=== PATIENT | female | born 1950 ===

== ENCOUNTER 2017-08-16 16:13 | Outpatient (RCR) | payer MEDICAID ==
[2017-06-05 15:07] VITALS: BMI 19.2
[~2017-08-16 16:13] MED LIST: BACL-1 PO; HYDR-5517 PO; LEVO75TA68 PO; LIDO700A19; LIDO700A19 TP; LIOT5TAB18 PO; ONDA4TAB9 SL; PANT40TA65 PO; PROL120 PO; PROM-110 PO; VER40 PO
[2017-08-17] MEDS ORDERED: IOPAMIDOL 76% 75 ML INFUS BTL 75 ML ONE (09:15)
[2017-08-17] MEDS ORDERED: NS 0.9% 50 ML VIAL 50 ML ONE (09:15)
--- NOTE | 2017-08-17 10:18 | RADIOLOGY IMAGING REPORT ---
[place] [facility] [place] Alyssa [place] : 1950 MR: [id number] V: [id number] EXAM DATE: ORDERING PHYSICIAN: LILIANA BERRY TECHNOLOGIST: Location: [facility] [place] Patient: Alyssa Stewart : 1950 Visit/Account:[id number] Date of Sevice: 08/17/2017 ABDOMEN/PELVIS WITH CONTRAST HISTORY: Abdominal pain. Enteritis. TECHNIQUE: Axial images were obtained through the abdomen and pelvis with intravenous contrast . One of the following dose optimization techniques was utilized in the performance of this exam: automate d exposure control; adjustment of the mA and/or kv according to patient size; or use of iterative rec onstruction technique. Specific details can be referenced in the facility's radiology CT exam operati onal policy. CONTRAST: 75 mL of Isovue-370 COMPARISON: CT abdomen/pelvis 06/02/2017 FINDINGS: Visualized lung bases: Platelike atelectasis. Hepatobiliary: No arterial phase obtained. Prior subcapsular 5 mm enhancing focus at the right lobe the liver is not seen on this single portal venous phase. No biliary ductal dilatation. Spleen: Negative. Adrenals: Stable 1 cm right adrenal nodule, likely an adenoma. Pancreas: Negative. Kidneys/ureters/bladder: Negative. Bowel/peritoneum/mesentery: Prior small bowel dilatation has resolved. Prior small amount of ascite s has resolved. Vessels: Mild arterial calcifications. Retroaortic left renal vein noted. Lymph nodes: Mildly enlarged retroperitoneal lymph nodes measuring up to 1 cm Pelvic genitourinary: Hysterectomy Bones/body wall: Negative. Other findings: None significant IMPRESSION: 1. Prior small bowel dilatation as well as ascites have resolved. 2. Stable 1 cm right adrenal gland nodule, likely an adenoma. 3. Mildly enlarged retroperitoneal lymph nodes measuring up to 1 cm are nonspecific. Report Dictated By: Daniel Zhang MD at 08/17/2017 9:59 AM Report E-Signed By: Daniel Zhang MD at 08/17/2017 10:13 AM WSN:[email or web address]
== END 2017-08-17 18:00 | disposition home or self-care (01) ==
LOC: CT 16:13 → EDSTATUS 08-17 16:12 → CT 08-17 18:00
PROVIDERS: ATTEND Surgery
DX: R10.9 Unspecified abdominal pain (principal); Z87.19 Personal history of other diseases of the digestive system; R59.9 Enlarged lymph nodes, unspecified; E27.9 Disorder of adrenal gland, unspecified
CPT/HCPCS: 36415; 74177; 82565; J7050; Q9967

== ENCOUNTER → 2017-11-12 | Outpatient (CLI) | payer MEDICAID ==
[2017-06-05 15:07] VITALS: BMI 19.2
[~2017-11-12] MED LIST changes: +LEVO50TA86 PO; +RIZA5TAB26 PO; +SUMA100T33 PO
[2017-11-12 16:35] LABS: PLATELET COUNT, AUTOMATED 306 K/uL (150-450)
== END ==
LOC: LAB 15:43
PROVIDERS: ATTEND Internal Medicine
DX: K52.9 Noninfective gastroenteritis and colitis, unspecified (principal); Z90.11 Acquired absence of right breast and nipple; S21.001A Unspecified open wound of right breast, initial encounter; E03.9 Hypothyroidism, unspecified; G43.909 Migraine, unspecified, not intractable, without status migrainosus; I10 Essential (primary) hypertension; M79.7 Fibromyalgia
CPT/HCPCS: 36415; 81001; 82040; 82247; 82310; 82374; 82435; 82565; 82607; 82728; 82746; 82947; 83540; 83550; 84075; 84132; 84155; 84295; 84439; 84443; 84450; 84460; 84481; 84520; 85025

== ENCOUNTER → 2017-11-19 | Outpatient (CLI) | payer MEDICARE, MEDICAID ==
[2017-06-05 15:07] VITALS: BMI 19.2
[~2017-11-19] MED LIST changes: +FERR-53 PO; +GADOBENATE 529MG/1ML 15ML VIAL IVP ONE; +LEVO75TA73 PO; +NS 0.9% 20 ML SDV 40 ML ONE
--- NOTE | 2017-11-19 17:05 | RADIOLOGY IMAGING REPORT ---
FACILITY: [facility] - [place] PATIENT NAME: WILIAN HARDY : [id number] MR: [id number] V: [id number] EXAM DATE: [id number] ORDERING PHYSICIAN: REE OTOOLE TECHNOLOGIST: Maria Esther Arreguin PROCEDURE: BREAST BILATERAL W/O AND/OR WITH CONTRAST COMPARISON: None. INDICATIONS: HX OF RIGHT MASTECTOMY, RECURRENT CA OF RIGHT BREAST FINDINGS: The patient was scheduled for bilateral breast MR for Right chest wall mass and history of bilateral mastectomies. The patient was unable to tolerate laying prone on the breast coil for the examination therefore the examination is being rescheduled following premedication and oxygen administration by the patient's health care provider. This was a nondiagnostic study although there did appear to be multiple Right chest wall masses which should be further evaluated. IMPRESSION: The patient was unable to tolerate laying prone in the breast coil. The examination is to be rescheduled following patient medication and oxygen administration by the patient's healthcare provider. Dictated by: Marianne Arroyo M.D. on 11/19/2017 at 13:26 Transcribed by: MARLON on 11/19/2017 at 15:57 Approved by: Marianne Arroyo M.D. on 11/19/2017 at 17:05 [facility]
== END ==
LOC: MRI 11-14 01:18
PROVIDERS: ATTEND Internal Medicine
DX: Z02.9 Encounter for administrative examinations, unspecified (principal)
CPT/HCPCS: 0159T; A9577; C8908; J7050; 77059

== ENCOUNTER → 2017-12-06 | Outpatient (CLI) | payer MEDICARE, MEDICAID ==
[2017-06-05 15:07] VITALS: BMI 19.2
[~2017-12-06] MED LIST changes: -GADOBENATE 529MG/1ML 15ML VIAL IVP ONE; +IOPAMIDOL 76% 75 ML INFUS BTL 75 ML ONE; -NS 0.9% 20 ML SDV 40 ML ONE; +OXYC20TA99 PO
--- NOTE | 2017-12-06 15:06 | RADIOLOGY IMAGING REPORT ---
[place] [facility] [place] NAME: Alyssa Stewart : 1950 MR: [id number] V: [id number] EXAM DATE: ORDERING PHYSICIAN: REE OTOOLE TECHNOLOGIST: Location: [facility] Patient: Alyssa Stewart : 1950 Visit/Account:[id number] Date of Sevice: 12/06/2017 CHEST/AB/PELV W/WO CONTRAST HISTORY: Recurrent breast cancer right ADDITIONAL HISTORY: None. TECHNIQUE: Pre and post administration of IV contrast axial images acquired through the chest abdome n and pelvis during the portal venous phase. Coronal and sagittal reformatting was also performed. D ose Lowering Technique One of the following dose optimization techniques was utilized in the performance of this exam: Autom ated exposure control; adjustment of the mA and/or kV according to the patient's size; or use of an i terative reconstruction technique. Specific details can be referenced in the facility's radiology C T exam operational policy. CONTRAST: 75 mL Isovue-370 COMPARISON: August 17, 2017 FINDINGS: CHEST: Lungs/Pleura: Small amount linear scarring in the lung bases. Very mild symmetric biapical fibrotic change. There is very subtle nodularity of the pleura in the upper lobes. The appearance is more suggestive of mild scarring as opposed to metastatic nodules Mediastinum/lymph nodes: There are small subcentimeter pretracheal and AP window lymph nodes. There are multiple right hilar lymph nodes. A registered representative lymph node measures 1.4 x 0.9 cm. smaller l eft hilar lymph nodes are present. There are multiple abnormal bilateral axillary lymph nodes, supra clavicular lymph nodes, right internal mammary lymph nodes and multiple irregular partially enhancing nodules in the anterior chest wall. There is a large irregular polylobular partially enhancing mass like area extending outward from the right chest wall measuring approximately 8.1 x 1.8 x 12.5 cm Heart/vessels: Negative. Bones/soft tissues: Please see above discussion concerning chest wall metastases and enlarged lymph nodes S-shaped scoliosis of the thoracolumbar spine ABDOMEN AND PELVIS: Hepatobiliary: Negative. Spleen: Negative. Pancreas: Negative. Adrenals: 1 cm right adrenal nodule remains unchanged left adrenal gland appears unremarkable Kidneys ureters and bladder : Negative. Genitalia: Hysterectomy GI: There is a moderate amount of fecal material seen throughout the colon which can be seen with c onstipation Vessels/spaces/nodes: The previously noted mildly prominent retroperitoneal lymph nodes have increas ed in size and number with the previously noted 1 cm node now measuring 1.3 cm Bones/soft tissues: No aggressive appearing bone lesions. Additional findings: None pertinent. IMPRESSION: There are small subcentimeter pretracheal and AP window lymph nodes Multiple right hilar lymph nodes are present with a registered representative node measuring 1.4 x 0.9 cm. Left hilar lymph nodes appear smaller There are multiple abnormal appearing bilateral axillary and supraclavicular lymph nodes in addition to enlarged right internal mammary lymph node and multiple irregular partially enhancing nodules in t he anterior chest wall consistent with metastatic disease.. 1 cm right adrenal nodule remains stable and is likely an adenoma Previously noted mildly prominent right peroneal lymph nodes have increased in size and number concer amador for malignancy although could be reactive. No aggressive appearing bone lesions are seen Subtle nodularity of the pleura in the upper lobes. The appearance is more suggestive of mild scarri ng as opposed to metastatic nodules Report Dictated By: Marianne Arroyo MD at 12/06/2017 2:38 PM Report E-Signed By: Marianne Arroyo MD at 12/06/2017 3:00 PM WSN:[email or web address]
== END ==
LOC: CT 07:17
PROVIDERS: ATTEND Internal Medicine
DX: C77.3 Secondary and unspecified malignant neoplasm of axilla and upper limb lymph nodes (principal)
CPT/HCPCS: 71270; 72194; 74170; Q9967

== ENCOUNTER → 2018-02-20 | Outpatient (CLI) | payer MEDICARE, MEDICAID ==
[2017-06-05 15:07] VITALS: BMI 19.2
[~2018-02-20] MED LIST changes: +GABA-547 PO; -IOPAMIDOL 76% 75 ML INFUS BTL 75 ML ONE
== END ==
LOC: LAB 14:15
PROVIDERS: ATTEND Surgery
DX: C50.911 Malignant neoplasm of unspecified site of right female breast (principal)
CPT/HCPCS: 88305; 88344

== ENCOUNTER 2018-03-16 11:53 | Emergency (ER) | payer MEDICARE, MEDICAID ==
[2017-06-05 15:07] VITALS: Wt 50.3 kg
--- NOTE | 2018-03-16 13:14 | ER Report ---
History and Physical Time Seen By MD: 13:14 Hx. of Stated Complaint: Sent by [facility] for low H/H. Was supposed to come yesterday HPI/ROS CHIEF COMPLAINT: Anemia HISTORY OF PRESENT ILLNESS: 67-year-old female patient presents to emergency room with complaint of anemia. Patient states states that she had gone to the [facility] for routine labs. She states that she received a call yesterday that her H&H were low and she came in for evaluation. Patient states she was unable to come to the ER last night and so came this morning. Patient states that she is feeling fine although she does feel some more fatigue than she normally does. Patient states she's been dealing with chronic fatigue since she became an adult. She states that she also has fibromyalgia. She states that she has noted more recently that she's gets tired more easily than usual. She denies any nausea, vomiting. She states denies taking any NSAIDs on a normal basis. She states that she's not noticed any black or tarry stools. She does have a history of Crohn's disease. REVIEW OF SYSTEMS: Respiratory: No cough, no dyspnea. Cardiovascular: No chest pain, no palpitations. Gastrointestinal: No vomiting, no abdominal pain. Musculoskeletal: No back pain. Allergies: Coded Allergies: codeine (Verified Allergy, Unknown, 03/16/18) morphine (Verified Allergy, Unknown, 03/16/18) Uncoded Allergies: anesthia (Adverse Reaction, Unknown, Vomiting/ migraine, 11/12/17) Home Meds Active Scripts Hydromorphone Hcl (DILAUDID) 4 Mg Tablet, 1 TAB PO Q6H Y for PAIN, #120 TAB Prov:REE OTOOLE MD 03/11/18 Promethazine Hcl (PROMETHAZINE HCL) 25 Mg Tablet, 1 TAB PO Q6H Y for NAUSEA/ VOMITING, #120 TAB Prov:REE OTOOLE MD 03/11/18 Baclofen (BACLOFEN) 10 Mg Tablet, 10 MG PO TID Y for pain, #60 TAB 2 Refills Prov:REE OTOOLE MD 02/06/18 Sumatriptan Succinate (SUMATRIPTAN SUCCINATE) 100 Mg Tablet, 100 MG PO ONCE Y for MIGRAINE, #9 TAB 2 Refills not to exceed more than 9 tablets / month Prov:REE OTOOLE MD 02/06/18 Lidocaine (Lidocaine) 5 % Adh..patch, 1-3 EACH TP QDAY, #90 PATCH.24H 3 Refills Prov:REE OTOOLE MD 02/06/18 Liothyronine Sodium (CYTOMEL) 5 Mcg Tablet, 1.5 TAB PO DAILY, #135 TAB 0 Refills Prov:REE OTOOLE MD 11/20/17 Propranolol Hcl (INDERAL LA) 120 Mg Capcr, 1 CAP PO QDAY, #90 CAP 0 Refills Prov:REE OTOOLE MD 11/20/17 Levothyroxine Sodium (LEVOTHYROXINE SODIUM) 75 Mcg Tablet, 75 MCG PO QDAY, #90 TAB 1 Refill Prov:REE OTOOLE MD 11/14/17 Past Medical/Surgical History Patient has a past medical history of fibromyalgia, chronic fatigue, migraines, hypertension, Crohn's disease, arthritis, osteoporosis, back pain, anemia, depression, tumor on chest, bilateral breast cancer. Patient has surgical history of hysterectomy. Reviewed Nurses Notes: Yes Hx Smoking: No Smoking Status: Never Smoker Hx Alcohol Use: No (drug interaction) Constitutional Vital Sign - Last 24 Hours 03/16/18 03/16/18 03/16/18 12:23 13:16 17:10 Temp 98.4 98.6 Pulse 65 67 60 Resp 16 18 16 B/P (MAP) 110/68 112/76 (88) Pulse Ox 93 93 97 O2 Delivery Room Air Room Air Room Air Intake and Output 03/16/18 03/16/18 03/17/18 15:00 23:00 07:00 Intake Total 250 ml Balance 250 ml Physical Exam General Appearance: The patient is alert, has no immediate need for airway protection and no current signs of toxicity. Respiratory: Chest is non tender, lungs are clear to auscultation. Cardiac: regular rate and rhythm Gastrointestinal: Abdomen is soft and non tender, no masses, bowel sounds normal. Musculoskeletal: Neck: Neck is supple and non tender. Extremities have full range of motion and are non tender. Skin: No rashes or lesions. DIFFERENTIAL DIAGNOSIS: After history and physical exam differential diagnosis was considered for anemia, exacerbation of chronic fatigue, Crohn's disease, GI bleed. Medical Decision Making Data Points Result Diagram: 03/16/18 1336 03/16/18 1336 Laboratory Hematology Test 03/16/18 13:36 Red Blood Count 3.89 M/uL (4.17-5.56) Mean Corpuscular Volume 63.1 fL (80.0-96.0) Mean Corpuscular Hemoglobin 19.3 pg (26.0-33.0) Mean Corpuscular Hemoglobin Concent 30.6 g/dL (32.0-36.0) Red Cell Distribution Width 18.5 % (11.5-14.5) Mean Platelet Volume 8.1 fL (7.2-11.1) Neutrophils (%) (Auto) 80.1 % (39.4-72.5) Lymphocytes (%) (Auto) 8.0 % (17.6-49.6) Monocytes (%) (Auto) 10.3 % (4.1-12.4) Eosinophils (%) (Auto) 1.1 % (0.4-6.7) Basophils (%) (Auto) 0.5 % (0.3-1.4) Nucleated RBC Relative Count (auto) 0.0 /100WBC Neutrophils # (Auto) 8.6 K/uL (2.0-7.4) Lymphocytes # (Auto) 0.9 K/uL (1.3-3.6) Monocytes # (Auto) 1.1 K/uL (0.3-1.0) Eosinophils # (Auto) 0.1 K/uL (0.0-0.5) Basophils # (Auto) 0.1 K/uL (0.0-0.1) Nucleated RBC Absolute Count (auto) 0.00 K/uL Peripheral Blood Smear Y/N Sodium Level 137 mmol/L (137-145) Potassium Level 4.6 mmol/L (3.5-5.0) Chloride Level 100 mmol/L (98-107) Carbon Dioxide Level 29 mmol/L (22-31) Blood Urea Nitrogen 30 mg/dl (7-18) Creatinine 1.10 mg/dl (0.52-1.04) Glomerular Filtration Rate Calc 49.8 Random Glucose 91 mg/dl (75-110) Calcium Level 8.7 mg/dl (8.4-10.2) Total Bilirubin 0.3 mg/dl (0.2-1.3) Aspartate Amino Transf (AST/SGOT) 31 U/L (0-35) Alanine Aminotransferase (ALT/SGPT) 17 U/L (0-56) Alkaline Phosphatase 89 U/L (0-126) Total Protein 7.5 g/dl (6.3-8.2) Albumin 3.6 g/dl (3.5-5.0) Chemistry Test 03/16/18 13:36 White Blood Count 10.7 k/uL (4.5-11.0) Red Blood Count 3.89 M/uL (4.17-5.56) Hemoglobin 7.5 g/dL (12.0-16.0) Hematocrit 24.5 % (34.0-47.0) Mean Corpuscular Volume 63.1 fL (80.0-96.0) Mean Corpuscular Hemoglobin 19.3 pg (26.0-33.0) Mean Corpuscular Hemoglobin Concent 30.6 g/dL (32.0-36.0) Red Cell Distribution Width 18.5 % (11.5-14.5) Platelet Count 328 K/uL (150-450) Mean Platelet Volume 8.1 fL (7.2-11.1) Neutrophils (%) (Auto) 80.1 % (39.4-72.5) Lymphocytes (%) (Auto) 8.0 % (17.6-49.6) Monocytes (%) (Auto) 10.3 % (4.1-12.4) Eosinophils (%) (Auto) 1.1 % (0.4-6.7) Basophils (%) (Auto) 0.5 % (0.3-1.4) Nucleated RBC Relative Count (auto) 0.0 /100WBC Neutrophils # (Auto) 8.6 K/uL (2.0-7.4) Lymphocytes # (Auto) 0.9 K/uL (1.3-3.6) Monocytes # (Auto) 1.1 K/uL (0.3-1.0) Eosinophils # (Auto) 0.1 K/uL (0.0-0.5) Basophils # (Auto) 0.1 K/uL (0.0-0.1) Nucleated RBC Absolute Count (auto) 0.00 K/uL Peripheral Blood Smear Y/N Glomerular Filtration Rate Calc 49.8 Calcium Level 8.7 mg/dl (8.4-10.2) Total Bilirubin 0.3 mg/dl (0.2-1.3) Aspartate Amino Transf (AST/SGOT) 31 U/L (0-35) Alanine Aminotransferase (ALT/SGPT) 17 U/L (0-56) Alkaline Phosphatase 89 U/L (0-126) Total Protein 7.5 g/dl (6.3-8.2) Albumin 3.6 g/dl (3.5-5.0) ED Course/Re-evaluation ED Course Patient was admitted to an exam room, history of physical were obtained. Differential diagnoses were considered. On examination lungs are clear, heart is regular, abdomen soft nontender. A repeat CBC and CMP were done. Patient did have a hemoglobin which had actually gone down slightly from 7.7-7.5. Patient states that she had been feeling very fatigued recently. We discussed doing a rectal exam to look for GI bleed. Patient refused at that time was. She states she would prefer to go home then to be admitted to the hospital. She states that she has dogs that she needs to care for. A type and screen was done. With her being unable to give us a stool sample we will go ahead and transfuse a unit here in the emergency room. Which she tolerated well. We will go ahead and discharge her home and have her bring back a stool sample tomorrow. I will contact her with the results of the stool. She is to limit her activity by pain. She is to avoid NSAIDs. She is increase her fluid intake. I would like her to follow-up Dr. Echols if she does have a positive occult stool, however she has a negative occult stool no have her follow-up with the cancer center. Patient verbalized understanding and agreement with plan. Decision to Disposition Date: Mar 16, 2018 Decision to Disposition Time: 17:30 Depart Departure Latest Vital Signs Vital Signs Date Time Temp Pulse Resp B/P (MAP) Pulse Ox O2 Delivery O2 Flow Rate FiO2 03/16/18 17:10 98.6 60 16 112/76 (88) 97 Room Air Impression: Primary Impression: Anemia Condition: Improved Disposition: HOME OR SELF-CARE Referrals: REE OTOOLE MD (PCP) Patient Instructions: Anemia (ED) Additional Instructions: Bring back stool sample tomorrow. We will call with the results. Get plenty of rest. At this time I am unsure if this is bleeding from the gastrointestinal tract or not. We should know more with the stool sample. As of this time I would recommend following up with Dr. Echols, but if the stool sample is negative I will have you follow up with the cancer center. Return to the ER if condition worsens. Problem Qualifiers Primary Impression: Anemia Anemia type: other cause Other causes of anemia: other cause, not classified Qualified Codes: D64.89 - Other specified anemias DEIRDRE CUETO Mar 16, 2018 13:14
[2018-03-16] MEDS ORDERED: NS(*) 0.9% 1000 ML BAG 1,000 ML IV ONE (13:21)
[2018-03-16 13:56] LABS: PLATELET COUNT, AUTOMATED 328 K/uL (150-450)
[2018-03-16] MEDS ORDERED: NS(*) 0.9% 500 ML BAG 500 ML IV ONE (14:40)
[2018-03-16] MEDS ORDERED: NS(*) 0.9% 500 ML BAG 500 ML ONE (16:00)
[2018-03-16 17:10] VITALS: BP 112/76
== END 2018-03-16 17:26 | disposition home or self-care (01) ==
LOC: ER 13:16
DX: D64.89 Other specified anemias (principal); M79.7 Fibromyalgia; K50.90 Crohn's disease, unspecified, without complications; I10 Essential (primary) hypertension; M19.90 Unspecified osteoarthritis, unspecified site; M81.0 Age-related osteoporosis without current pathological fracture; Z79.899 Other long term (current) drug therapy
CPT/HCPCS: 85025; 86850; 86900; 86901; 86920; 99283; J7040; P9016; 82040; 82247; 82310; 82374; 82435; 82565; 82947; 84075; 84132; 84155; 84295; 84450; 84460; 84520

== ENCOUNTER → 2018-03-18 | Outpatient (REF) | payer MEDICARE, MEDICAID ==
[2017-06-05 15:07] VITALS: BMI 19.2
== END ==
LOC: ZZSENDIN 16:17
PROVIDERS: ATTEND Nurse Practitioner Family
DX: D64.9 Anemia, unspecified (principal)
CPT/HCPCS: 82274

== ENCOUNTER → 2018-03-21 | Outpatient (CLI) | payer MEDICARE, MEDICAID ==
[2017-06-05 15:07] VITALS: BMI 19.2
[2018-03-21 16:15] LABS: PLATELET COUNT, AUTOMATED 303 K/uL (150-450)
== END ==
LOC: LAB 16:02
PROVIDERS: ATTEND Internal Medicine Hematology
DX: D64.9 Anemia, unspecified (principal)
CPT/HCPCS: 36415; 85025

== ENCOUNTER → 2018-04-02 | Outpatient (CLI) | payer MEDICARE, MEDICAID ==
[2017-06-05 15:07] VITALS: BMI 19.2
[~2018-04-02] MED LIST changes: +GADOBENATE 529MG/1ML 15ML VIAL IVP ONE
--- NOTE | 2018-04-02 12:15 | RADIOLOGY IMAGING REPORT ---
FACILITY: [facility] - [place] PATIENT NAME: Alyssa Stewart : 1950 MR: [id number] V: [id number] EXAM DATE: ORDERING PHYSICIAN: JAMES HUDSON TECHNOLOGIST: Location: [facility] Patient: Alyssa Stewart : 1950 Visit/Account:[id number] Date of Sevice: 04/02/2018 Exam type: ORBITS FOREIGN BODY 1 VIEW History: Pre-MRI screening Comparison: None. Findings: No radiopaque metallic foreign bodies project over the orbits IMPRESSION: 1. No radiopaque metallic foreign bodies project over the orbits Report Dictated By: Marianne Arroyo MD at 04/02/2018 12:10 PM Report E-Signed By: Marianne Arroyo MD at 04/02/2018 12:11 PM WSN:[email or web address]
--- NOTE | 2018-04-02 13:35 | RADIOLOGY IMAGING REPORT ---
FACILITY: [facility] - [place] PATIENT NAME: Alyssa Stewart : 1950 MR: [id number] V: [id number] EXAM DATE: ORDERING PHYSICIAN: JAMES HUDSON TECHNOLOGIST: Location: [facility] - [place] Patient: Alyssa Stewart : 1950 Visit/Account:[id number] Date of Sevice: 04/02/2018 EXAMINATION: MRI Brain without intravenous contrast MRI Brain with intravenous contrast HISTORY: Breast cancer. COMPARISON: PET CT dated 01/05/2014. TECHNIQUE: Multi-planar, multi-sequence brain MRI was performed before and after IV gadolinium. CONTRAST: 11 mL of IV MultiHance FINDINGS: Brain volume: Normal. Sagittal midline structures: Negative. Ventricles: Negative. Acute ischemic changes: None. Hemorrhage: Subcentimeter T2 hypointensity with magnetic susceptibility in the right superior tempor al lobe with no abnormal enhancement or surrounding edema (series 6, images 12 and 13). This is most likely focal calcification, hemosiderin staining from chronic hemorrhage, or cavernous malformation. No evidence of acute intracranial hemorrhage. Masses / edema: None. Enhancement: Negative. Zuleta-white: Negative. White matter: Mild to moderate patchy FLAIR hyperintensity in the frontoparietal white matter. Vessels: Negative. Extra-axial: Negative. Calvarium / scalp: Negative. Skull base: Negative. Visualized sinuses / orbits: Negative. Visualized upper neck: Negative. IMPRESSION: 1. Subcentimeter T2 hypointensity with magnetic susceptibility in the right superior temporal lobe wi th no abnormal enhancement or surrounding edema (series 6, images 12 and 13). This is most likely foc al calcification, hemosiderin staining from chronic hemorrhage, or cavernous malformation. Compariso n with prior brain MRI is recommended if available. Otherwise follow up brain MRI in 1-3 months is re commended to make sure this remains stable and exclude the possibility of a hemorrhagic metastasis in this location. 2. Otherwise no evidence of metastasis. 3. Mild to moderate chronic frontoparietal white matter changes are nonspecific but most likely repre sent chronic microvascular ischemia. Report Dictated By: Akhil Osorio MD at 04/02/2018 1:21 PM Report E-Signed By: Akhil Osorio MD at 04/02/2018 1:32 PM WSN:[email or web address]
== END ==
LOC: MRI 09:31
PROVIDERS: ATTEND Internal Medicine Hematology
DX: R90.82 White matter disease, unspecified (principal)
CPT/HCPCS: 70030; 70553; 93306; A9577

== ENCOUNTER 2018-05-10 02:57 | Day surgery (SDC) | payer MEDICARE, MEDICAID ==
[2017-06-05 15:07] VITALS: Ht 162.6 cm; Wt 48.1 kg
[2018-05-10] VITALS (9 sets, daily range): BP systolic 111–138; BP diastolic 60–80
[~2018-05-10] VITALS: Ht 162.6 cm; Wt 48.1 kg
[~2018-05-10 02:57] MED LIST changes: -GADOBENATE 529MG/1ML 15ML VIAL IVP ONE
[2018-05-10] MEDS ORDERED: MIDAZOLAM 2 MG/2 ML VIAL IVP PRN (06:15)
[2018-05-10] MEDS ORDERED: NORMOSOL R SOLN(*) 1000 ML BAG 1,000 ML IV PRN (06:15)
[2018-05-10] MEDS ORDERED: FAMOTIDINE 20 MG TAB PO ONE (06:15)
[2018-05-10] MEDS ORDERED: ceFAZolin(*) 2GM/D5W 50ML 50 ML IVPB ONE (06:15)
[2018-05-10] MEDS ORDERED: LIDOCAINE/SOD BICARB 8.4% SYR ID ONE (06:15)
[2018-05-10] MEDS ORDERED: HEPARIN SOD LCK FLSH 100 UN/ML ONE (06:48)
[2018-05-10] MEDS ORDERED: ROPIVACAINE 0.5% 20 ML VIAL ONE (06:49)
[2018-05-10] MEDS ORDERED: NS(*) 0.9% 10 ML VIAL 20 ML ONE (06:49)
[2018-05-10] MEDS ORDERED: fentaNYL CITR 100 MCG/2 ML AMP ONE (06:55)
[2018-05-10] MEDS ORDERED: DEXAMETHASONE SOD PHOS 10MG/ML ONE (06:55)
[2018-05-10] MEDS ORDERED: LIDOCAINE MPF 1% 5 ML VIAL ONE (06:55)
[2018-05-10] MEDS ORDERED: ONDANSETRON 4 MG/2 ML VIAL ONE (06:55)
[2018-05-10] MEDS ORDERED: PROPOFOL EMUL(*) 10MG/ML 20 ML 20 ML ONE (06:55)
[2018-05-10] MEDS ORDERED: PROPOFOL EMUL(*) 10MG/ML 20 ML 40 ML ONE (06:56)
--- NOTE | 2018-05-10 08:32 | Short(Outpt) Discharge Summary ---
Discharge Summary Reason for Hosp/Final Diag: (1) Recurrent cancer of right breast Status: Chronic Hospital Course & Plan: Left IJ Power Port placement completed without prob lems. Departure Discharge to: Home, Self Care Discharge Instructions Home Meds Active Scripts Hydromorphone Hcl (DILAUDID) 4 Mg Tablet, 1 TAB PO Q6H PRN for PAIN, #120 TAB Prov:REE OTOOLE MD 04/10/18 Promethazine Hcl (PROMETHAZINE HCL) 25 Mg Tablet, 1 TAB PO Q6H PRN for NAUSEA/VO MITING, #120 TAB 4 Refills Prov:REE OTOOLE MD 04/10/18 Baclofen (BACLOFEN) 10 Mg Tablet, 10 MG PO TID PRN for pain, #60 TAB 2 Refills Prov:REE OTOOLE MD 02/06/18 Sumatriptan Succinate (SUMATRIPTAN SUCCINATE) 100 Mg Tablet, 100 MG PO ONCE PRN for MIGRAINE, #9 TAB 2 Refills not to exceed more than 9 tablets / month Prov:REE OTOOLE MD 02/06/18 Lidocaine (Lidocaine) 5 % Adh..patch, 1-3 EACH TP QDAY, #90 PATCH.24H 3 Refills Prov:REE OTOOLE MD 02/06/18 Liothyronine Sodium (CYTOMEL) 5 Mcg Tablet, 1.5 TAB PO DAILY, #135 TAB 0 Refills Prov:REE OTOOLE MD 11/20/17 Propranolol Hcl (INDERAL LA) 120 Mg Capcr, 1 CAP PO QDAY, #90 CAP 0 Refills Prov:REE OTOOLE MD 11/20/17 Levothyroxine Sodium (LEVOTHYROXINE SODIUM) 75 Mcg Tablet, 75 MCG PO QDAY, #90 TAB 1 Refill Prov:REE OTOOLE MD 11/14/17 Reported Medications Ferrous Sulfate (FERROUS SULFATE) 325 Mg Tablet, 325 MG PO TID with meals 04/26/18 Diet: Regular Activity: As Tolerated Special Instructions: You may continue to change the dressings on your breast cancer wounds daily and as needed but, if possible, try to leave the dressings over the port incisions on your chest and neck in place until 05/12/18. You may remove the dressings on 05/12/18, then you can shower. After showering, leave the incisions open to air but leave the steristrips in place until they fall off on their own. Do not immerse the incisions for 2 weeks. LILIANA BERRY MD May 10, 2018 08:31
--- NOTE | 2018-05-10 08:38 | Post Operative Progress Note ---
Post Operative Progress Note Date: May 10, 2018 Time: 08:32 Surgeon: Onesimo Dictation number: [id number] Anesthesia: LMA by Dr. Bahena Pre-Op Diagnosis: Recurrent advanced breast cancer Post-Op Diagnosis: SHELDON Findings: None Procedure(s): Left IJ Power Port placement Specimen Removed:(May be N/A): None Complications: None Fluids: See anesthesia record Estimated Blood Loss: Minimal Date OP Note Dictated: May 10, 2018 Time OP Note Dictated: 08:33 LILIANA BERRY MD May 10, 2018 08:38
--- NOTE | 2018-05-10 08:49 | RADIOLOGY IMAGING REPORT ---
[facility]AC[facility] PATIENT NAME: Alyssa Stewart : 1950 MR: [id number] V: [id number] EXAM DATE: ORDERING PHYSICIAN: LILIANA BERRY TECHNOLOGIST: Location: [facility] Patient: Alyssa Stewart : 1950 Visit/Account:[id number] Date of Sevice: 05/10/2018 CHEST SINGLE AP Indication: Para port placement.. Comparison: June 02, 2017. Findings: Interval placement of a left chest wall port catheter with tip projecting over the distal SVC. Heart size within normal limits. Questionable consolidation within the left lung base, likely representing atelectasis. There is bron chovascular prominence with fullness of the bilateral hilar regions, favored vascular in etiology. No pneumothorax or pleural effusion. IMPRESSION: 1. No acute cardiopulmonary process. 2. Left chest wall port catheter with tip projecting over the distal SVC. No visualized complicatio n. 3. Bronchovascular prominence without gualberto pulmonary edema. 4. Questionable consolidation within the left lung base, likely representing atelectasis. Report Dictated By: Renzo Rolon MD at 05/10/2018 8:43 AM Report E-Signed By: Renzo Rolon MD at 05/10/2018 8:46 AM WSN:[email or web address]
--- NOTE | 2018-05-10 11:34 | RADIOLOGY IMAGING REPORT ---
FACILITY: [facility] - [place] PATIENT NAME: Alyssa Stewart : 1950 MR: [id number] V: [id number] EXAM DATE: ORDERING PHYSICIAN: LILIANA BERRY TECHNOLOGIST: Location: [facility] [place] Patient: Alyssa Stewart : 1950 Visit/Account:[id number] Date of Sevice: 05/10/2018 Exam type: C-ARM FLUORO PORT/CATH History: PORT PLACEMENT Comparison: None. Fluoroscopy Time: 23 seconds Findings: 2 intraoperative images are available. 2 spot films demonstrating placement of a left chest wall port catheter with tip projecting over the distal SVC. IMPRESSION: 1. Fluoroscopic guidance provided for port placement. Report Dictated By: Renzo Rolon MD at 05/10/2018 11:17 AM Report E-Signed By: Renzo Rolon MD at 05/10/2018 11:29 AM WSN:[id number]
--- NOTE | 2018-05-10 12:16 | OPERATIVE REPORT 1 ---
EVENT DATE: May 10, 2018 SURGEON: Raghu Echols MD ANESTHESIOLOGIST: Arsh Bahena MD ANESTHESIA: LMA PREOPERATIVE DIAGNOSIS Recurrent advanced breast cancer. POSTOPERATIVE DIAGNOSIS Recurrent advanced breast cancer. PROCEDURE PERFORMED Left IJA PowerPort placement. COMPLICATIONS None. CONDITION Stable. ESTIMATED BLOOD LOSS Minimal. INDICATIONS This is a 67-year-old female who was treated several years ago for a right breast cancer with a mastectomy but then had a recurrence in the same side. She has other chronic comorbidities including fibromyalgia, chronic fatigue, and elected apparently not to proceed with chemotherapy or any treatment and the mass has progressively gotten bigger and now is a fungating mass in her right breast. After several discussions and ultimately referral to the oncologist, she has decided to proceed with a palliative chemotherapy and they have requested a PowerPort to be placed to facilitate this. DESCRIPTION OF PROCEDURE The patient was brought to the operating room and placed supine on the operating table. LMA anesthesia was administered and all of her dressings were taken down and I placed 1010 drapes over the large, fungating mass on her right chest and there was a smaller fungating mass on her left inferior chest and these were covered with 1010 drapes to be prepped out of the field. Her left chest, shoulder and neck were prepped and draped in sterile fashion and timeout was completed. I then had her in Trendelenburg and used the ultrasound to identify the left internal jugular vein and then used the access needle and was able to access the vein in one attempt. I then threaded the wire through the needle and removed the needle and then used the C-arm fluoroscope to insure the wire was positioned in the superior vena cava. After I confirmed this, then I anesthetized the skin in the left neck and in the left infraclavicular skin and then I made a stab incision in the neck with an 11 blade right where the wire entered the neck and then made a transverse incision with a 15 blade in the left infraclavicular skin. I then dissected to the dermis at this location and then created a subcutaneous pocket just over the muscle fascia in this very thin patient. I made sure this was hemostatic and then I used the tunneler and dragged the catheter from the pocket up to the stab incision in the neck. Then with the patient in Trendelenburg threaded a dilator and sheath over the wire and removed the dilator and wire and threaded the catheter through the sheath and removed the sheath. I then used the fluoroscope to position the tip of the catheter in the superior vena cava just above the right atrium and then cut the catheter length and placed it on the port, locked it in placed with a locking collar. I then sutured the port to the underlying muscle fascia with 2-0 Nylon at the corners. I then aspirated blood through the catheter and port and then flushed it with 8 mL of normal saline and then flushed it with 5 mL of 100 units/mL Heparinated saline. It aspirated and flushed without any problems. I then took more C-arm images and confirmed it was in good position and it was. There were no kinks or twists and the tip was in the superior vena cava just above the right atrium. I then closed the skin at the pocket site with interrupted 3-0 Vicryl deep dermal sutures and the 4-0 Monocryl running subcuticular sutures and then I placed a single 3-0 Chronic suture in the stab incision in the neck. Her skin was cleaned and dried, and Steri-Strips were applied over the incisions followed by sterile surgical dressings. The patient was awakened and LMA removed. She was transferred to the recovery room in stable condition having tolerated the procedure without any apparently problems. BESSIE
[2018-05-15] MEDS ORDERED: HYDR-5517 PO (11:36)
== END 2018-05-10 09:30 | disposition home or self-care (01) ==
LOC: OR 02:57
PROVIDERS: ATTEND Surgery
DX: C50.911 Malignant neoplasm of unspecified site of right female breast (principal)
CPT/HCPCS: 36561; 71045; 77001; A9270; C1788; J1100; J2001; J2250; J2405; J2704; J2795; J3010; J0690

== ENCOUNTER → 2018-05-15 | Outpatient (CLI) | payer MEDICARE, MEDICAID ==
[2017-06-05 15:07] VITALS: BMI 19.2
[2018-05-15 12:19] LABS: PLATELET COUNT, AUTOMATED 289 K/uL (150-450)
== END ==
LOC: LAB 11:42
PROVIDERS: ATTEND Internal Medicine
DX: D64.9 Anemia, unspecified (principal); C50.911 Malignant neoplasm of unspecified site of right female breast
CPT/HCPCS: 36415; 82040; 82247; 82310; 82374; 82435; 82565; 82607; 82728; 82746; 82947; 83540; 83550; 84075; 84132; 84155; 84238; 84295; 84450; 84460; 84520; 85025

== ENCOUNTER 2018-05-27 09:00 | Outpatient (RCR) | payer MEDICARE, MEDICAID ==
[2017-06-05 15:07] VITALS: Ht 159 cm; Wt 49.9 kg
[2018-02-28 14:42] VITALS: BP 105/57
--- NOTE | 2018-02-28 18:00 | ONCOLOGY CONSULTATION ---
EVENT DATE: February 28, 2018 REFERRING PHYSICIAN SANCHO Klein REASON FOR CONSULTATION Evaluation and management of recurrent right breast cancer. ONCOLOGY HISTORY Patient is a 67-year-old female who was discharged with right breast cancer ER/ MO negative, HER2/harris positive approximately seven years ago. She completed a right mastectomy in 2010 and the patient chose at that time not to proceed with chemotherapy. She is currently experiencing recurrent disease with reported fungating mass on the right breast that is now on the left breast as well. She was admitted recently and treated by Dr. Echols for small bowel obstruction. She had a CT chest, abdomen and pelvis done on December 06, 2017 which showed multiple abnormal bilateral axillary and supraclavicular lymph nodes and enlarged right internal mammary lymph node, and multiple irregularly partially enhancing nodules in the anterior chest wall consistent with her metastatic disease. On February 21, 2018 patient had a fracture of the fungating mass of the right breast area which came back positive for poorly differentiated carcinoma, microsatellite instability high negative. The pathological markers for breast cancer with ER/MO and HER2/harris are still pending. PAST MEDICAL HISTORY 1. Right breast cancer diagnosed initially in 2010 with recurrence in May 2017. 2. Severe fibromyalgia. 3. Chronic migraines. 4. Hypertension. 5. Hypothyroidism. PAST SURGICAL HISTORY 1. Total vaginal hysterectomy. 2. Right breast mastectomy in 2010. 3. Bilateral tubal ligation. FAMILY HISTORY Maternal grandmother had some sort of cancer. Mother had some sort of blood cancer and father had prostate cancer. SOCIAL HISTORY Patient is seen alone. She does not have children. She does not answer most of the social history questions. MEDICATIONS 1. Baclofen 10 mg three times daily as needed. 2. Sumatriptan succinate 100 mg once as needed for migraine. 3. Lidocaine 5% adhesive patch 1-3 topically daily. 4. Dilaudid 4 mg one tablet every six hours as needed for pain. 5. Cytomel 5 mcg one and a half tablets daily. 6. Propanolol 120 mg daily. 7. Levothyroxine 75 mcg daily. 8. Promethazine 25 mg every six hours p.r.n. for nausea and vomiting. ALLERGIES 1. CODEINE. 2. MORPHINE. 3. MULTIPLE CHEMICAL SENSITIVITIES. REVIEW OF SYSTEMS CONSTITUTIONAL: No appetite or weight change. No fever, chills or sweating. No recent infection. HEENT: Ears: No tinnitus or hearing problem. Nose: No nasal discharge or epistaxis. Throat: No sore throat or mouth ulcers. Eyes: No diplopia or visual changes. RESPIRATORY: No shortness of breath. No cough, expectoration or hemoptysis. CARDIOVASCULAR: No chest pain, orthopnea, or paroxysmal nocturnal dyspnea (PND) . No edema. No palpitations. GASTROINTESTINAL: The patient has nausea. No vomiting. No diarrhea or constipation. No change in bowel movements. No heartburn or swallowing difficulties. No abdominal pain. No jaundice. No hematemesis, melena or rectal bleeding. GENITOURINARY: No hematuria or dysuria. MUSCULOSKELETAL: She has piin all over from her fibromyalgia. NEUROLOGICAL: No tingling or numbness in the hands or feet. She ahs migraine headaches frequently. No convulsions. HEMATOLOGIC/LYMPHATIC: No bleeding or easy bruising. She is weak, tired and fatigued. No enlarged lymph nodes. SKIN: No skin rash or lumps. PSYCHIATRIC: No anxiety or depression. PHYSICAL EXAMINATION GENERAL: Looks stable. Well-developed, well-nourished, and in no acute distress. VITAL SIGNS: Blood pressure 105/57, pulse 68 per minute, respirations 16 per minute, temperature 98.8, pulse ox 93% on room air. HEENT: Head: Atraumatic. No sinus tenderness to palpation. Eyes: No icterus or conjunctivitis. Mouth and Throat: No oral thrush or mucositis. NECK: Supple. No cervical or supraclavicular lymphadenopathy. LUNGS: Clear to auscultation and percussion bilaterally. HEART: Regular rate and rhythm. No gallops, murmurs, clicks or rubs. The right chest wall was actually dressed with gauze and taped to the chest wall over the fungating mass. ABDOMEN: Soft and lax. No tenderness. No hepatosplenomegaly. No masses. EXTREMITIES: No cyanosis, clubbing or edema. LYMPHATICS: No peripheral lymphadenopathy. NEUROLOGICAL: Conscious, alert and oriented times three. No focal motor or sensory deficits. PSYCHIATRIC: Mood and affect appear normal. SKIN: No skin rash, bruise or purpuric eruption. ASSESSMENT 1. Recurrent right breast cancer with chest wall recurrence with fungating mass extending to the left breast. Patient had biopsy of the fungating mass on February 21, 2018, which came back positive for poorly differentiated carcinoma microsatellite instability high negative. She had CT chest, abdomen and pelvis on December 06, 2017 which showed multiple lymph nodes, bilateral axillary, supraclavicular lymph nodes, right internal mammary, but of all the lymph nodes actually the largest was 1.4 cm. She was initially diagnosed with right breast cancer and she had right mastectomy in 2010. Her tumor was ER/MO negative, HER2 /harris positive, and the patient declined treatment at that time. I am planning to get staging workup, given that her CAT scan in November showed multiple lymph nodes suggestive of recurrent metastatic disease. I am planning to get a PET CT scan and MRI of the brain. I am planning also to check her CBC, chem panel , CA 27-29 and CA 15-3. I will see the patient after that and after we get the pathological markers from her recent biopsy in January 2018 to decide about further plan. The patient expressed her wishes today not to have any chemistry in her treatment. It depends on the stage and the pathological markers. If she is HER2/harris positive then treatment with Herceptin and PERJETA will be the plan of management. And if the ER/MO is positive then we will consider also adding hormonal therapy with Femara. If patient has stage IV then I prefer to start with Taxotere beside Herceptin and PERJETA, and once we get the response we can maintain with Herceptin and PERJETA alone. I explained all these issues to the patient today and she would like to talk to [place] Mathis prior to making her decision about further management. I will see her in a week with the results of the above tests to set the plan of her treatment. If the patient will get a good response locally she may consider surgical treatment after that and radiation therapy. PLAN 1. PET CT scan. 2. MRI of the brain. 3. CBC, chem panel. 4. CA 27-29 and CA 15-3. 5. Await the results of the pathological markers from her biopsy done January. 6. Patient to return in one week for further evaluation and management. 7. Patient is to contact us for any new concerns or complaints. ANNIED
[2018-03-15 12:15] LABS: PLATELET COUNT, AUTOMATED 328 K/uL (150-450)
[2018-04-26 08:33] VITALS: BP 140/55
--- NOTE | 2018-04-26 21:17 | ONCOLOGY FOLLOW UP NOTE ---
EVENT DATE: April 26, 2018 DIAGNOSIS Recurrent right breast cancer with chest wall recurrence, lymph node metastasis, and lung nodules. CHIEF COMPLAINT Patient is here today for followup of her recurrent right breast cancer. ONCOLOGY HISTORY Patient is a 67-year-old female who was discharged with right breast cancer, ER/RI negative, HER2/harris positive approximately seven years ago. She completed a right mastectomy in 2010, and the patient chose at that time not to proceed with chemotherapy. She is currently experiencing recurrent disease with reported fungating mass on the right breast that is now on the left breast as well. She was admitted recently and treated by Dr. Echols for small-bowel obstruction. She had a CT chest, abdomen, and pelvis done on December 06, 2017, which showed multiple abnormal bilateral axillary and supraclavicular lymph nodes, enlarged right internal mammary lymph node, and multiple irregular, partially enhancing nodules in the anterior chest wall consistent with her metastatic disease. On February 21, 2018, patient had a fracture of the fungating mass of the right breast area which came back positive for poorly differentiated carcinoma, microsatellite instability high negative. The pathological markers for breast cancer showed negative ER/RI and positive HER2/harris by FISH (2+ by immunohistochemistry), and Ki-67 was 43.8%. MRI brain done on the March showed right superior temporal lobe hypointensity with no surrounding edema or abnormal enhancement which could be due to chronic hemorrhage, and the patient had a history of severe trauma to the head before. PET/CT scan done on the March showed previous right mastectomy with dominant fungating right chest wall mass concerning for recurrent chest wall tumor. There are numerous additional hypermetabolic nodules in the right chest wall and in the left breast concerning for hypermetabolic metastatic disease. There is extensive hypermetabolic adenopathy in the lower neck, mediastinum, lima, axillae, and throughout the abdomen and the pelvis which could represent hypermetabolic metastatic disease. Echocardiogram showed normal left ventricular ejection fraction at 67.6%. CA27.29 and CA15-3 were normal. Patient will start treatment with Herceptin, Perjeta, and Taxotere in April 2018. HISTORY OF PRESENT ILLNESS Patient is here today for followup of her recurrent metastatic right breast cancer. She is complaining of generalized joint pain all over from her fibromyalgia. She is weak, tired, and fatigued lately. PAST MEDICAL HISTORY 1. Right breast cancer, diagnosed initially in 2010 with recurrence in May 2017. 2. Severe fibromyalgia. 3. Chronic migraines. 4. Hypertension. 5. Hypothyroidism. PAST SURGICAL HISTORY 1. Total vaginal hysterectomy. 2. Right breast mastectomy in 2010. 3. Bilateral tubal ligation. FAMILY HISTORY Maternal grandmother had some sort of cancer, mother had some sort of blood cancer, and father had prostate cancer. SOCIAL HISTORY Patient is seen alone. She does not have children. She does not answer most of the social history questions. MEDICATIONS 1. Baclofen 10 mg three times daily as needed. 2. Sumatriptan succinate 100 mg once as needed for migraine. 3. Lidocaine 5% adhesive patch one to three topically daily. 4. Dilaudid 4 mg one tablet every six hours as needed for pain. 5. Cytomel 5 mcg one and a half tablets daily. 6. Propranolol 120 mg daily. 7. Levothyroxine 75 mcg daily. 8. Promethazine 25 mg every six hours p.r.n. for nausea and vomiting. ALLERGIES 1. CODEINE. 2. MORPHINE. 3. MULTIPLE CHEMICAL SENSITIVITIES. REVIEW OF SYSTEMS CONSTITUTIONAL: No appetite or weight change. No fever, chills, or sweating. No recent infection. HEENT: Ears: No tinnitus or hearing problem. Nose: No nasal discharge or epistaxis. Throat: No sore throat or mouth ulcers. Eyes: No diplopia or visual changes. RESPIRATORY: No shortness of breath. No cough, expectoration, or hemoptysis. CARDIOVASCULAR: No chest pain, orthopnea, or paroxysmal nocturnal dyspnea (PND). No edema. No palpitations. GASTROINTESTINAL: The patient has nausea. No vomiting. No diarrhea or constipation. No change in bowel movements. No heartburn or swallowing difficulties. No abdominal pain. No jaundice. No hematemesis, melena, or rectal bleeding. GENITOURINARY: No hematuria or dysuria. MUSCULOSKELETAL: She has generalized joint pains all over from fibromyalgia. NEUROLOGICAL: No tingling or numbness in the hands or feet. She has migraine headaches frequently. No convulsions. HEMATOLOGIC/LYMPHATIC: No bleeding or easy bruising. She is weak, tired, and fatigued. No enlarged lymph nodes. SKIN: No skin rash or lumps. PSYCHIATRIC: No anxiety or depression. PHYSICAL EXAMINATION GENERAL: Looks stable. Well developed, well nourished, and in no acute distress. VITAL SIGNS: Blood pressure 140/55, pulse 66 per minute, respirations 16 per minute, temperature 98.4, pulse ox 92% on room air. HEENT: Head: Atraumatic. No sinus tenderness to palpation. Eyes: No icterus or conjunctivitis. Mouth and Throat: No oral thrush or mucositis. NECK: Supple. No cervical or supraclavicular lymphadenopathy. LUNGS: Clear to auscultation and percussion bilaterally. HEART: Regular rate and rhythm. No gallops, murmurs, clicks, or rubs. CHEST: The right chest wall was actually dressed with gauze and taped to the chest wall over the fungating mass. ABDOMEN: Soft and lax. No tenderness. No hepatosplenomegaly. No masses. EXTREMITIES: No cyanosis, clubbing, or edema. LYMPHATICS: No peripheral lymphadenopathy. NEUROLOGICAL: Conscious, alert, and oriented times three. No focal motor or sensory deficits. PSYCHIATRIC: Mood and affect appear normal. SKIN: No skin rash, bruise, or purpuric eruption. DIAGNOSTIC DATA CBC showed white count 7.5, hemoglobin 7.7, hematocrit 25.5, platelets 328,000. Chem panel normal except sodium 136, BUN 23. CA27.29 normal at 18. CA15-3 is normal at 19. Serum iron 32, TIBC 383, iron saturation 8.4%, and ferritin 9. MRI brain on the March showed right superior temporal lobe hypodensity with no surrounding edema or abnormal enhancement which could be due to chronic hemorrhage, and the patient had severe head injury in the past. PET/CT scan on the March showed the previous right mastectomy with dominant fungating right chest wall mass and the numerous hypermetabolic nodules in the right chest wall and in the left breast. There was also hypermetabolic adenopathy in the lower neck, mediastinum, lima, axillae, and throughout the abdomen and pelvis. Echocardiogram done on the March showed normal left ventricular ejection fraction at 67.6%. ASSESSMENT 1. Recurrent right breast cancer with chest wall recurrence with fungating mass extending to the left breast. Biopsy of the fungating mass February 21, 2018, came back positive for poorly differentiated carcinoma, microsatellite instability high negative, ER/RI negative, HER2/harris 2+ by immunohistochemistry, but positive by FISH, and the Ki-67 was 43.8%. CT abdomen, chest, and pelvis done December 06, 2017, showed multiple lymph nodes bilateral axillae, supraclavicular lymph nodes, right internal mammary, but of all the lymph nodes actually. The largest was about 1.4 cm. Patient was initially diagnosed with right breast cancer, and she had right mastectomy in 2010. Her tumor was ER/RI negative, HER2/harris positive, and the patient declined treatment at that time. PET/CT scan on the March showed right mastectomy with dominant fungating right chest wall mass and additional hypermetabolic nodules in the right chest wall and in the left breast concerning for hypermetabolic metastatic disease. There was also hypermetabolic extensive adenopathy in the lower neck, mediastinum, lima, axillae, and throughout the abdomen and pelvis. Her MRI of the brain done on the March showed right superior temporal lobe hypointensity with no surrounding edema or abnormal enhancement which could be due to chronic hemorrhage, and the patient had head trauma in the past. Left ventricular ejection fraction by two-dimensional echocardiogram done on the March showed normal left ventricular ejection fraction at 67.6%. Her tumor markers CA27.29 and CA15-3 were normal. I am planning to treat her with combination of Taxotere, Herceptin, and Perjeta to get the maximal response. Then, we are going to maintain her on Herceptin and Perjeta after that. The patient is agreeable with the plan of management. I spent a long time with the patient explaining the plan of management and side effects expected from her treatment, and she is willing to start her treatment next week, so the patient will start Herceptin, Perjeta, and Taxotere in April 2018. I will see her in three weeks after starting chemotherapy with CBC, chemistry panel, and I will check her CBC, chemistry panel every week. If the patient develops neutropenia, I will add Neulasta to her treatment. 2. Iron deficiency anemia, most probably due to oozing blood from her fungating mass in the right chest wall. Her serum ferritin was 9, iron saturation 8.4%, TIBC 383, and serum iron 32. I am planning to put her on ferrous sulfate 325 mg three times daily, and we will monitor her blood count in two months with iron studies. PLAN 1. Taxotere, Herceptin, Perjeta cycle #1. 2. Ferrous sulfate 325 mg orally three times daily with meals. 3. CBC, chem panel to be checked weekly. 4. Patient to return in three weeks after starting chemotherapy with CBC, chem panel. 5. Consider Neulasta if the patient develops neutropenia with her chemotherapy. 6. Patient to contact us for any new concern or complaints. 7. Refill her pain medications with Dilaudid and promethazine. MTDD
[~2018-05-27] VITALS: Ht 159 cm; Wt 49.9 kg
[~2018-05-27 09:00] MED LIST changes: +ALTEPLASE RECOMB 2 MG VIAL IVP PRN; +DEXTROSE 5%(*) 100 ML BAG 100 ML IVPB PRN; +HEPARIN FLSH (PORT) 500 UN/5ML IVP PRN; +LIDOCAINE/SOD BICARB 8.4% SYR ID PRN; +NS(*) 0.9% 100 ML BAG 100 ML IVPB PRN; +NS(*) 0.9% 500 ML BAG 500 ML IV PRN; +WATER FOR INJ,STERILE 20 ML IVP PRN
[2018-05-27 09:44] VITALS: BP 96/51
[2018-05-27] MEDS ORDERED: FERRIC CARBOXY 750 MG SDV 750 MG in NS(*) 0.9% 250 ML BAG 250 ML IVP ONE (10:20)
[2018-05-28] MEDS ORDERED: HYDR-5517 PO (15:12)
== END 2018-05-28 ==
LOC: ONC 09:00
PROVIDERS: ATTEND Internal Medicine Hematology
DX: C50.911 Malignant neoplasm of unspecified site of right female breast (principal); C77.8 Secondary and unspecified malignant neoplasm of lymph nodes of multiple regions; R59.1 Generalized enlarged lymph nodes; Z17.1 Estrogen receptor negative status [ER-]; E03.9 Hypothyroidism, unspecified; M79.7 Fibromyalgia; I10 Essential (primary) hypertension; G43.919 Migraine, unspecified, intractable, without status migrainosus; Z90.710 Acquired absence of both cervix and uterus; R91.8 Other nonspecific abnormal finding of lung field
CPT/HCPCS: 85025; 86300; 96365; G0463; J1439; J1642; J7050; 82040; 82247; 82310; 82374; 82435; 82565; 82947; 84075; 84132; 84155; 84295; 84450; 84460; 84520; 99203; 99212

== ENCOUNTER 2018-06-04 09:00 | Outpatient (RCR) | payer MEDICARE, MEDICAID ==
[2017-06-05 15:07] VITALS: BMI 19.2
[~2018-06-04 09:00] MED LIST changes: -ALTEPLASE RECOMB 2 MG VIAL IVP PRN; -DEXTROSE 5%(*) 100 ML BAG 100 ML IVPB PRN; -HEPARIN FLSH (PORT) 500 UN/5ML IVP PRN; -LIDOCAINE/SOD BICARB 8.4% SYR ID PRN; -NS(*) 0.9% 100 ML BAG 100 ML IVPB PRN; -NS(*) 0.9% 500 ML BAG 500 ML IV PRN; -WATER FOR INJ,STERILE 20 ML IVP PRN
[2018-06-04] MEDS ORDERED: LIDOCAINE/SOD BICARB 8.4% SYR ID PRN (09:10)
[2018-06-04] MEDS ORDERED: WATER FOR INJ,STERILE 20 ML IVP PRN (09:10)
[2018-06-04] MEDS ORDERED: DEXTROSE 5%(*) 100 ML BAG 100 ML IVPB PRN (09:10)
[2018-06-04] MEDS ORDERED: NS(*) 0.9% 100 ML BAG 100 ML IVPB PRN (09:10)
[2018-06-04] MEDS ORDERED: HEPARIN FLSH (PORT) 500 UN/5ML IVP PRN (09:10)
[2018-06-04] MEDS ORDERED: NS(*) 0.9% 500 ML BAG 500 ML IV PRN (09:10)
[2018-06-04] MEDS ORDERED: ALTEPLASE RECOMB 2 MG VIAL IVP PRN (09:10)
[2018-06-04 09:31] VITALS: BP 132/78
[2018-06-04] MEDS ORDERED: FERRIC CARBOXY 750 MG SDV 750 MG in NS(*) 0.9% 250 ML BAG 250 ML IVP ONE (09:45)
[2018-06-04 11:01] VITALS: BP 125/82
[2018-06-14] MEDS ORDERED: HYDR-5517 PO (11:42)
== END 2018-08-28 08:33 | disposition home or self-care (01) ==
LOC: SPU 09:00
PROVIDERS: ATTEND Internal Medicine Hematology
DX: C50.911 Malignant neoplasm of unspecified site of right female breast (principal)
CPT/HCPCS: 96374; J1642; J2997; J7050

== ENCOUNTER 2018-12-19 03:46 | Inpatient (IN) | payer MEDICARE, MEDICAID ==
[2017-06-05 15:07] VITALS: Wt 48.1 kg
--- NOTE | 2018-12-19 03:36 | ER Report ---
History and Physical Time Seen By MD: 03:36 (DERIK FROST DO) HPI/ROS CHIEF COMPLAINT: Shortness of breath HISTORY OF PRESENT ILLNESS: 68-year-old female with a history of recurrent metastatic breast cancer normally on O2 by 2 L by nasal cannula. She now notes increasing shortness of breath over the last 3 days. She notes no fever, chills or productive cough. She states she is unable to find a position of comfort or position is comfortable to breathe in. Patient denies chest pain. She denies leg swelling. She has lymphedema of her right arm. REVIEW OF SYSTEMS: Respiratory: As above Cardiovascular: No chest pain, no palpitations. Gastrointestinal: No vomiting, no abdominal pain. Musculoskeletal: No back pain. (DERIK FROST DO) Allergies: Coded Allergies: codeine (Verified Allergy, Unknown, 12/19/18) morphine (Verified Allergy, Unknown, 12/19/18) Uncoded Allergies: ANESTHESIA (Adverse Reaction, Unknown, NAUSEA & MIGRAINE, 05/06/18) Home Meds Active Scripts Prednisone (PREDNISONE) 20 Mg Tablet, 20 MG PO QDAY for reduce lung inflammation, #9 2 by mouth daily for 3 days then 1 by mouth daily for 3 days Prov:DERIK FROST DO 12/19/18 Cefuroxime Axetil (CEFUROXIME) 500 Mg Tablet, 500 MG PO BID for infection, #14 TAB Prov:DERIK FROST DO 12/19/18 Sumatriptan Succinate (SUMATRIPTAN SUCCINATE) 100 Mg Tablet, 100 MG PO ONCE PRN for MIGRAINE, #9 TAB 2 Refills not to exceed more than 9 tablets / month Prov:REE OTOOLE MD 02/06/18 Lidocaine (Lidocaine) 5 % Adh..patch, 1-3 EACH TP QDAY, #90 PATCH.24H 3 Refills Prov:REE OTOOLE MD 02/06/18 Liothyronine Sodium (CYTOMEL) 5 Mcg Tablet, 1.5 TAB PO DAILY, #135 TAB 0 Refills Prov:REE OTOOLE MD 11/20/17 Propranolol Hcl (INDERAL LA) 120 Mg Capcr, 1 CAP PO QDAY, #90 CAP 0 Refills Prov:REE OTOOLE MD 11/20/17 Levothyroxine Sodium (LEVOTHYROXINE SODIUM) 75 Mcg Tablet, 75 MCG PO QDAY, #90 TAB 1 Refill Prov:REE OTOOLE MD 11/14/17 Reported Medications Hydromorphone HCl (Hydromorphone ER) 8 Mg Tab.er.24h, 1 TAB PO BID 12/19/18 Hydromorphone Hcl (DILAUDID) 4 Mg Tablet, 4 MG PO BID 12/19/18 Promethazine Hcl (PROMETHAZINE HCL) 25 Mg Tablet, 25 MG PO Q4-6H, TAB 12/19/18 Baclofen (BACLOFEN) 10 Mg Tablet, 15 MG PO QID, #30 TAB 12/19/18 Ferrous Sulfate (FERROUS SULFATE) 325 Mg Tablet, 325 MG PO TID with meals 04/26/18 Discontinued Reported Medications Hydromorphone Hcl (DILAUDID) 8 Mg Tablet, 8 MG PO BID 12/19/18 Discontinued Scripts Hydromorphone Hcl (DILAUDID) 4 Mg Tablet, 1 TAB PO Q6H PRN for PAIN, #24 TAB Prov:REE OTOOLE MD 06/14/18 Promethazine Hcl (PROMETHAZINE HCL) 25 Mg Tablet, 1 TAB PO Q6H PRN for NAUSEA/VOMITING, #120 TAB 4 Refills Prov:REE OTOOLE MD 04/10/18 Baclofen (BACLOFEN) 10 Mg Tablet, 10 MG PO TID PRN for pain, #60 TAB 2 Refills Prov:REE OTOOLE MD 02/06/18 Past Medical/Surgical History PAST MEDICAL HISTORY 1. Right breast cancer, diagnosed initially in 2010 with recurrence in May 2017. 2. Severe fibromyalgia. 3. Chronic migraines. 4. Hypertension. 5. Hypothyroidism. PAST SURGICAL HISTORY 1. Total vaginal hysterectomy. 2. Right breast mastectomy in 2010. 3. Bilateral tubal ligation. (DERIK FROST DO) Hx Smoking: No Smoking Status: Never Smoker Hx Substance Use Disorder: No Hx Alcohol Use: No (drug interaction) (DERIK FROST DO) Constitutional Vital Sign - Last 24 Hours 12/19/18 12/19/18 12/19/18 12/19/18 03:35 03:35 03:46 04:00 Temp 97.9 Pulse 74 72 Resp 18 8 B/P (MAP) 111/84 Pulse Ox 94 92 90 O2 Delivery Nasal Cannula Nasal Cannula O2 Flow Rate 3.0 12/19/18 12/19/18 12/19/18 12/19/18 04:00 04:00 04:16 05:16 Pulse 70 72 68 Resp 22 28 11 B/P (MAP) 120/68 (85) Pulse Ox 91 87 12/19/18 12/19/18 12/19/18 12/19/18 06:00 06:30 07:00 07:10 Pulse 66 65 64 64 Resp 13 10 14 Pulse Ox 89 88 88 12/19/18 12/19/18 12/19/18 12/19/18 07:15 07:45 08:15 08:45 Pulse 65 66 65 65 Resp 11 11 11 11 Pulse Ox 86 88 86 86 12/19/18 12/19/18 12/19/18 12/19/18 09:45 09:46 10:13 10:15 Pulse 64 65 Resp 12 B/P (MAP) 118/68 (85) 90/65 (73) Pulse Ox 86 86 12/19/18 12/19/18 12/19/18 12/19/18 10:30 10:45 11:00 11:15 Pulse 62 62 Resp 9 10 B/P (MAP) 92/61 (71) 88/62 (71) Pulse Ox 84 86 12/19/18 12/19/18 12/19/18 12/19/18 11:30 11:35 12:00 12:05 Pulse 64 63 Resp 11 9 B/P (MAP) 90/62 (71) 78/55 (63) Pulse Ox 89 87 12/19/18 12:30 B/P (MAP) 84/54 (64) (LELO BROOKS MD) Physical Exam General Appearance: The patient is alert, has no immediate need for airway protection and no current signs of toxicity. Mild respiratory distress, supplemental O2 at 4 L for saturations in the normal range, cachectic, thin HEENT: Pupils equal and round no injection. Oropharynx with dry mucous membranes Respiratory: [Chest is non tender, decreased breath sounds throughout, Rales and rhonchi noted., Fungating chest mass with purulent drainage Cardiac: regular rate and rhythm Gastrointestinal: Abdomen is soft and non tender, no masses, bowel sounds normal. Musculoskeletal: Neck: Neck is supple and non tender. No JVD Extremities have full range of motion and are non tender. Lymphedema of right arm Skin: Open draining fungating mass of right chest DIFFERENTIAL DIAGNOSIS: After history and physical exam differential diagnosis was considered for shortness of breath including but not limited to pulmonary infectious process, COPD, asthma, pulmonary embolus and congestive heart failure. (DERIK FROST DO) Medical Decision Making Data Points Result Diagram: 12/19/18 0350 12/19/18 0350 Laboratory Hematology Test 12/19/18 03:50 Red Blood Count 4.93 M/uL (4.17-5.56) Mean Corpuscular Volume 87.6 fL (80.0-96.0) Mean Corpuscular Hemoglobin 28.8 pg (26.0-33.0) Mean Corpuscular Hemoglobin Concent 32.8 g/dL (32.0-36.0) Red Cell Distribution Width 14.0 % (11.5-14.5) Mean Platelet Volume 7.5 fL (7.2-11.1) Neutrophils (%) (Auto) 88.4 % (39.4-72.5) Lymphocytes (%) (Auto) 3.3 % (17.6-49.6) Monocytes (%) (Auto) 7.9 % (4.1-12.4) Eosinophils (%) (Auto) 0.2 % (0.4-6.7) Basophils (%) (Auto) 0.2 % (0.3-1.4) Nucleated RBC Relative Count (auto) 0.0 /100WBC Neutrophils # (Auto) 9.8 K/uL (2.0-7.4) Lymphocytes # (Auto) 0.4 K/uL (1.3-3.6) Monocytes # (Auto) 0.9 K/uL (0.3-1.0) Eosinophils # (Auto) 0.0 K/uL (0.0-0.5) Basophils # (Auto) 0.0 K/uL (0.0-0.1) Nucleated RBC Absolute Count (auto) 0.00 K/uL Sodium Level 126 mmol/L (137-145) Potassium Level 5.2 mmol/L (3.5-5.0) Chloride Level 90 mmol/L (98-107) Carbon Dioxide Level 33 mmol/L (22-31) Blood Urea Nitrogen 30 mg/dl (7-18) Creatinine 0.80 mg/dl (0.52-1.04) Glomerular Filtration Rate Calc > 60.0 Random Glucose 93 mg/dl (75-110) Calcium Level 8.9 mg/dl (8.4-10.2) Total Bilirubin 0.4 mg/dl (0.2-1.3) Aspartate Amino Transf (AST/SGOT) 60 U/L (0-35) Alanine Aminotransferase (ALT/SGPT) 30 U/L (0-56) Alkaline Phosphatase 115 U/L (0-126) Troponin I < 0.012 ng/ml B-Type Natriuretic Peptide 30 pg/ml (0-100) Total Protein 7.1 g/dl (6.3-8.2) Albumin 2.9 g/dl (3.5-5.0) Chemistry Test 12/19/18 03:50 White Blood Count 11.1 k/uL (4.5-11.0) Red Blood Count 4.93 M/uL (4.17-5.56) Hemoglobin 14.2 g/dL (12.0-16.0) Hematocrit 43.2 % (34.0-47.0) Mean Corpuscular Volume 87.6 fL (80.0-96.0) Mean Corpuscular Hemoglobin 28.8 pg (26.0-33.0) Mean Corpuscular Hemoglobin Concent 32.8 g/dL (32.0-36.0) Red Cell Distribution Width 14.0 % (11.5-14.5) Platelet Count 406 K/uL (150-450) Mean Platelet Volume 7.5 fL (7.2-11.1) Neutrophils (%) (Auto) 88.4 % (39.4-72.5) Lymphocytes (%) (Auto) 3.3 % (17.6-49.6) Monocytes (%) (Auto) 7.9 % (4.1-12.4) Eosinophils (%) (Auto) 0.2 % (0.4-6.7) Basophils (%) (Auto) 0.2 % (0.3-1.4) Nucleated RBC Relative Count (auto) 0.0 /100WBC Neutrophils # (Auto) 9.8 K/uL (2.0-7.4) Lymphocytes # (Auto) 0.4 K/uL (1.3-3.6) Monocytes # (Auto) 0.9 K/uL (0.3-1.0) Eosinophils # (Auto) 0.0 K/uL (0.0-0.5) Basophils # (Auto) 0.0 K/uL (0.0-0.1) Nucleated RBC Absolute Count (auto) 0.00 K/uL Glomerular Filtration Rate Calc > 60.0 Calcium Level 8.9 mg/dl (8.4-10.2) Total Bilirubin 0.4 mg/dl (0.2-1.3) Aspartate Amino Transf (AST/SGOT) 60 U/L (0-35) Alanine Aminotransferase (ALT/SGPT) 30 U/L (0-56) Alkaline Phosphatase 115 U/L (0-126) Troponin I < 0.012 ng/ml B-Type Natriuretic Peptide 30 pg/ml (0-100) Total Protein 7.1 g/dl (6.3-8.2) Albumin 2.9 g/dl (3.5-5.0) (LELO BROOKS MD) EKG/Imaging EKG Interpretation 12 lead EK 359 Rhythm: normal sinus rhythm at 73 bpm there is a lot of baseline artifact [place]: normal QRS: normal, low voltage QRS throughout ST segments: normal, there is diffuse T-wave flattening, no old EKGs for comparison Imaging Results: CT scan of the CTA pulmonary chest was obtained. The results of the study are CT angiogram of the chest: Indication: Hypoxia. Metastatic breast cancer. Technique: Helical CT was performed through the chest following IV contrast enhancement with 75 cc of Isovue 370. Multiplanar reconstructions and MIP images are reviewed. One of the following dose optimization techniques was utilized in the performance of this exam: Automated exposure control; adjustment of the mA and/or kV according to the patient's size; or use of an iterative reconstruction technique. Specific details can be referenced in the facility's radiology CT exam operational policy. Comparison: 12/06/2017 Pulmonary arteries: There is uniform contrast enhancement. There are no signs of pulmonary emboli. Aorta and great vessels: Unremarkable, as visualized. No acute findings or significant change. Heart and pericardial soft tissues: Stable. Mediastinal soft tissues: Mediastinal lymphadenopathy is suspected. Mediastinum is shifted to the left by a large right pleural effusion. Lung arellano: Moderate to large areas of parenchymal consolidation and volume loss are present in the in both lungs, compatible with pneumonia or atelectasis. No mass or nodules are clearly identified. Pleural spaces: There is a large right effusion, of homogeneous density. No loculations are identified. A small left effusion is present. There is no evidence of pneumothorax. Skeletal structures: No acute findings. Upper abdomen: Unremarkable, as visualized. IMPRESSION: No evidence of pulmonary emboli. Moderate to large areas of parenchymal consolidation are present in both lungs, compatible with pneumonia or atelectasis. There is a large right pleural effusion, with mass effect and mediastinal shift to the left. The study was read by the radiologist. I viewed the images myself on the PACS system. (DERIK FROST DO) ED Course/Re-evaluation Clinical Indication for ER IV: Hydration, IV Access Decision to Disposition Date: December 19, 2018 Decision to Disposition Time: 05:50 (DERIK FROST DO) ED Course Pt was t/o to me at 0700 with plan for possible d/c if she returns to baseline mental status. However, throughout am pt continues to be minimally responsive with 02 requirement of 6L (baseline 2L). Pt requires hospice/end of life care. I reviewed CT which shows large effusion and bilat infiltrates; I attempted to query pt as to whether or not she wanted abx but she is not communicative sufficiently to agree or refuse. Will admin rocephin initial dose, do not feel blood cultures will add any benefit, and if pt is able to provide input on subsequent care, will tailor care as needed (ie comfort care only v abx/fluids). Pt remains hd stable upon admission with goal for hospice care. Family arrives at bedside and agrees with plan for comfort care only. Decision to Disposition Date: December 19, 2018 Decision to Disposition Time: 09:59 (LELO BROOKS MD) Depart Departure Latest Vital Signs Vital Signs Date Time Temp Pulse Resp B/P (MAP) Pulse Ox O2 Delivery O2 Flow Rate FiO2 12/19/18 12:30 84/54 (64) 12/19/18 12:05 63 9 87 12/19/18 04:00 Nasal Cannula 12/19/18 03:35 3.0 12/19/18 03:35 97.9 (LELO BROOKS MD) Impression: Primary Impression: Lung consolidation Additional Impressions: Hypoxia Metastatic breast cancer Condition: Improved Disposition: Admitted from ER Referrals: REE OTOOLE MD (PCP) New Scripts Prednisone (PREDNISONE) 20 Mg Tablet 20 MG PO QDAY for reduce lung inflammation, #9 2 by mouth daily for 3 days then 1 by mouth daily for 3 days Prov: DERIK FROST DO 12/19/18 Cefuroxime Axetil (CEFUROXIME) 500 Mg Tablet 500 MG PO BID for infection, #14 TAB Prov: DERIK FROST DO 12/19/18 Patient Instructions: Bacterial Pneumonia (ED) Additional Instructions: Follow-up with oncology clinic for consideration of hospice treatment Problem Qualifiers DERIK FROST DO December 19, 2018 03:36 LELO BROOKS MD December 19, 2018 10:03
[~2018-12-19 03:46] MED LIST changes: +ALBUTEROL/IPRATROPIUM 3 ML NEB NEB ONE; -CEFU500T10 PO; -HYDR8TAB PO; -HYDR8TAB16 PO; +NS(*) 0.9% 1000 ML BAG 1,000 ML IV ONE; -PRED20TA6 PO; +methylPREDNIS SUCC 125 MG/2ML IVP ONE
[2018-12-19 04:02] LABS: PLATELET COUNT, AUTOMATED 406 K/uL (150-450)
--- NOTE | 2018-12-19 04:11 | EKG ---
[place] [facility] [place] NAME: WILIAN HARDY : [id number] MR: [id number] V: [id number] EXAM DATE: ORDERING PHYSICIAN: DERIK FROST TECHNOLOGIST: MIRANDA Test Reason : SOB Blood Pressure : / mmHG Vent. Rate : 073 BPM Atrial Rate : 326 BPM P-R Int : 000 ms QRS Dur : 068 ms QT Int : 418 ms P-R-T Axes : 084 085 049 degrees QTc Int : 460 ms Atrial flutter Low voltage QRS Diffuse T wave flattening No previous ECGs available Confirmed by NNAMDI VINSON ([id number]) on 12/19/2018 6:38:11 AM Referred By: Confirmed By:NNAMDI VINSON
[2018-12-19] MEDS ORDERED: BACL-1 PO (04:22)
[2018-12-19] MEDS ORDERED: PROM-110 PO (04:22)
[2018-12-19] MEDS ORDERED: HYDR-5517 PO (04:22)
[2018-12-19] MEDS ORDERED: HYDR8TAB PO (04:22)
[2018-12-19] MEDS ORDERED: IOPAMIDOL 76% 100 ML INFUS BTL 100 ML ONE (04:27)
[2018-12-19] MEDS ORDERED: NS(*) 0.9% 50 ML BAG 50 ML ONE (04:27)
[2018-12-19] MEDS ORDERED: LORazepam 2 MG/ML VIAL IVP ONE (04:40)
--- NOTE | 2018-12-19 05:43 | RADIOLOGY IMAGING REPORT ---
FACILITY: PATIENT NAME: Alyssa Stewart : 1950 MR: [id number] V: [id number] EXAM DATE: ORDERING PHYSICIAN: DERIK FROST TECHNOLOGIST: Location: [facility] - [place] Patient: Alyssa Stewart : 1950 Visit/Account:[id number] Date of Sevice: 12/19/2018 CT angiogram of the chest: Indication: Hypoxia. Metastatic breast cancer. Technique: Helical CT was performed through the chest following IV contrast enhancement with 75 cc of Isovue 370. Multiplanar reconstructions and MIP images are reviewed. One of the following dose optimization techniques was utilized in the performance of this exam: Autom ated exposure control; adjustment of the mA and/or kV according to the patient's size; or use of an i terative reconstruction technique. Specific details can be referenced in the facility's radiology CT exam operational policy. Comparison: 12/06/2017 Pulmonary arteries: There is uniform contrast enhancement. There are no signs of pulmonary emboli. Aorta and great vessels: Unremarkable, as visualized. No acute findings or significant change. Heart and pericardial soft tissues: Stable. Mediastinal soft tissues: Mediastinal lymphadenopathy is suspected. Mediastinum is shifted to the lef t by a large right pleural effusion. Lung arellano: Moderate to large areas of parenchymal consolidation and volume loss are present in the in both lungs, compatible with pneumonia or atelectasis. No mass or nodules are clearly identified. Pleural spaces: There is a large right effusion, of homogeneous density. No loculations are identifie d. A small left effusion is present. There is no evidence of pneumothorax. Skeletal structures: No acute findings. Upper abdomen: Unremarkable, as visualized. IMPRESSION: No evidence of pulmonary emboli. Moderate to large areas of parenchymal consolidation are present in both lungs, compatible with pneumonia or atelectasis. There is a large right pleural effu fabiano, with mass effect and mediastinal shift to the left. Report Dictated By: Ward Reed MD at 12/19/2018 5:24 AM Report E-Signed By: Ward Reed MD at 12/19/2018 5:39 AM WSN:[id number]
[2018-12-19] MEDS ORDERED: PRED20TA6 PO (05:56)
[2018-12-19] MEDS ORDERED: CEFU500T10 PO (05:56)
[2018-12-19] MEDS ORDERED: CEFUROXIME AXETIL 250 MG TAB PO ONE (06:00)
[2018-12-19] MEDS ORDERED: AZITHROMYCIN(*) 500 MG 500 MG in NS(*) 0.9% 250 ML BAG 250 ML IVPB ONE (09:50)
[2018-12-19] MEDS ORDERED: cefTRIAXone 1 GM VIAL IVP ONE (09:50)
[2018-12-19 12:30] VITALS: BP 84/54
[2018-12-19] MEDS ORDERED: HYDR8TAB16 PO (12:32)
[2018-12-19] MEDS ORDERED: LORazepam 2 MG/ML VIAL IVP PRN (13:25)
[2018-12-19] MEDS ORDERED: SCOPOLAMINE 1.5 MG PATCH TD PRN (13:25)
[2018-12-19] MEDS ORDERED: HYDROmorphone HCL 2 MG/ML SDV IVP ONE (13:35)
[2018-12-19] MEDS ORDERED: PROMETHAZINE 25 MG/ML 1 ML AMP IVP PRN (13:40)
[2018-12-19] MEDS ORDERED: HYDROMORPHON PCA10MG/50ML(CII) 10 MG/50 ML PLAST..BAG IV PRN (14:00)
[2018-12-19] MEDS ORDERED: NS(*) 0.9% 1000 ML BAG 1,000 ML IV PRN (14:00)
--- NOTE | 2018-12-19 14:11 | History & Physical ---
History of Present Illness Chief Complaint Shortness of breath History of Present Illness 68-year-old female presented to the emergency department with shortness of breath over the last three days. She had no fever or chills or cough. She has a history of recurrent metastatic breast cancer normally on O2 by 2 L by nasal cannula. She states she is unable to find a position of comfort or position is comfortable to breathe in. Patient denies chest pain. She denies leg swelling. She has lymphedema of her right arm. She became more unresponsive throughout the ER visit. She was noted to have pneumonia on CT. The family at this time has decided to receive only comfort care for the patient. She was recommended for admission. History Problems: (1) Metastatic breast cancer Status: Chronic (2) LAD (lymphadenopathy) Status: Chronic (3) Hypertension Status: Chronic (4) Hypothyroidism Status: Chronic (5) Wound of right breast Status: Chronic Home Meds Active Scripts Prednisone (PREDNISONE) 20 Mg Tablet, 20 MG PO QDAY for reduce lung inflammation, #9 2 by mouth daily for 3 days then 1 by mouth daily for 3 days Prov:DERIK FROST DO 12/19/18 Cefuroxime Axetil (CEFUROXIME) 500 Mg Tablet, 500 MG PO BID for infection, #14 TAB Prov:DERIK FROST DO 12/19/18 Sumatriptan Succinate (SUMATRIPTAN SUCCINATE) 100 Mg Tablet, 100 MG PO ONCE PRN for MIGRAINE, #9 TAB 2 Refills not to exceed more than 9 tablets / month Prov:REE OTOOLE MD 02/06/18 Lidocaine (Lidocaine) 5 % Adh..patch, 1-3 EACH TP QDAY, #90 PATCH.24H 3 Refills Prov:REE OTOOLE MD 02/06/18 Liothyronine Sodium (CYTOMEL) 5 Mcg Tablet, 1.5 TAB PO DAILY, #135 TAB 0 Refills Prov:REE OTOOLE MD 11/20/17 Propranolol Hcl (INDERAL LA) 120 Mg Capcr, 1 CAP PO QDAY, #90 CAP 0 Refills Prov:REE OTOOLE MD 11/20/17 Levothyroxine Sodium (LEVOTHYROXINE SODIUM) 75 Mcg Tablet, 75 MCG PO QDAY, #90 TAB 1 Refill Prov:REE OTOOLE MD 11/14/17 Reported Medications Hydromorphone HCl (Hydromorphone ER) 8 Mg Tab.er.24h, 1 TAB PO BID 12/19/18 Hydromorphone Hcl (DILAUDID) 4 Mg Tablet, 4 MG PO BID 12/19/18 Promethazine Hcl (PROMETHAZINE HCL) 25 Mg Tablet, 25 MG PO Q4-6H, TAB 12/19/18 Baclofen (BACLOFEN) 10 Mg Tablet, 15 MG PO QID, #30 TAB 12/19/18 Ferrous Sulfate (FERROUS SULFATE) 325 Mg Tablet, 325 MG PO TID with meals 04/26/18 Discontinued Reported Medications Hydromorphone Hcl (DILAUDID) 8 Mg Tablet, 8 MG PO BID 12/19/18 Discontinued Scripts Hydromorphone Hcl (DILAUDID) 4 Mg Tablet, 1 TAB PO Q6H PRN for PAIN, #24 TAB Prov:REE OTOOLE MD 06/14/18 Promethazine Hcl (PROMETHAZINE HCL) 25 Mg Tablet, 1 TAB PO Q6H PRN for NAUSEA/VOMITING, #120 TAB 4 Refills Prov:REE OTOOLE MD 04/10/18 Baclofen (BACLOFEN) 10 Mg Tablet, 10 MG PO TID PRN for pain, #60 TAB 2 Refills Prov:REE OTOOLE MD 02/06/18 Allergies: Coded Allergies: codeine (Verified Allergy, Unknown, 12/19/18) morphine (Verified Allergy, Unknown, 12/19/18) Uncoded Allergies: ANESTHESIA (Adverse Reaction, Unknown, NAUSEA & MIGRAINE, 05/06/18) Patient History: Bone cancer MOTHER, , Age:80 (Waldenstrom's Cancer- bone and bone marrow) FH: hyperthyroidism MOTHER, , Age:80 FH: prostate cancer FATHER, , Age:98 FH: stroke FATHER, , Age:98 (7 Strokes) Kidney stone MOTHER, , Age:80 Hx Smoking: No Smoking Status: Never Smoker Caffeine Intake: Tea Caffeine/Cups Per Day: 1 cup daily Hx Alcohol Use: No (drug interaction) Hx Substance Use Disorder: No Social Drug Use: Never Review of Systems All Systems Reviewed/Normal: Yes, Except as Noted Constitutional: Other (unresponsive during exam) Exam Vital Signs Vital Signs Date Time Temp Pulse Resp B/P (MAP) Pulse Ox O2 Delivery O2 Flow Rate FiO2 12/19/18 12:35 63 10 87 12/19/18 12:30 84/54 (64) 12/19/18 04:00 Nasal Cannula 12/19/18 03:35 3.0 12/19/18 03:35 97.9 General Appearance: Afebrile Cardiovascular: Regular Rate and Rhythm Respiratory: Other (tachypenic, lungs diminished throughout) Extremities: Edema (6+ pitting edema to right arm, right leg) Integumentary: Other (skin opened to right breast/chest, smells foul/infected) Psych: Other (unresponsive ) Medical Decision Making Data Points Result Diagram: 12/19/18 0350 12/19/18 0350 Assessment and Plan Problems: (1) Metastatic breast cancer Status: Chronic Assessment & Plan: Her family wish to proceed with comfort care only. She does have chest wound from breast cancer. She will be placed on Dilaudid COSTUMER and Ativan for comfort. She is unresponsive. I don't suspect she will live long in her current condition. (2) Lung consolidation Status: Acute Assessment & Plan: She appears to have bilateral atelectasis/pneumonia on CT. She was given one dose of Rocephin in the ER, but have now discontinued antibiotics secondary to Comfort Care. Venous Thromboembolism Antithrombotics Is Pt On Any Antithrombotics?: No Exam Sepsis Risk: No Definite Risk KARRI REBOLLEDO [employer]ER December 19, 2018 14:11
[2018-12-19] MEDS ORDERED: HYDROmorphone HCL 2 MG/ML SDV IVP PRN (14:20)
[2018-12-19] MEDS ORDERED: PCA LOCKBOX KEYS XX PRN (15:20)
--- NOTE | 2018-12-19 16:00 | NUR ---
Pt. admitted from the ED for comfort care. Pt. has metastatic breast cancer, and she opted for no treatment. Pt. lives at home alone, and her current pain regimen wasn't working. When she arrived to the floor she was unresponsive, but working to breathe. Medicated with 1mg Dilaudid IV, then started a [employer] with a basal dose. Sister, Carlotta was updated on comfort care measures. Pt. passed at 1743. Notified Dr[address] Neumann and ANANDA Meyerneck fitter.
--- NOTE | 2018-12-19 18:03 | Antimicrobial Stewardship ---
Antimicrobial Time Out Antimicrobial Stewardship MD Service: Hospitalist Indications: CAP Antimicrobial Used ceftriaxone 1g and ceftin 250mg po times 2 dose in ER Start Date: December 19, 2018 Culture Results: N/A Eligible for PO Conversion Eligable for PO Conversion: No Reviewed with Provider Reviewed w/ Provider on Rounds: No Comments Comments Patient was found to have bilateral infiltrates and abx treatment started for pneumonia in ER. Family decided to pursue comfort care measures only and abx stopped. YVONNE PADRON December 19, 2018 18:03
--- NOTE | 2018-12-19 18:13 | Death Summary ---
Pronounced Date: December 19, 2018 Pronounced Time: 17:43 Preliminary Cause of : Metastatic breast cancer Assessment: Pneumonia History of Present Illness Please see admission history and physical for details. LILIANA CHOWDHURY DO December 19, 2018 18:13
== END 2018-12-19 17:43 | disposition expired | DRG 597 ==
LOC: ER 03:50 → MED 12:33
PROVIDERS: ADMIT Family Medicine; ATTEND Family Medicine
DX: C79.81 Secondary malignant neoplasm of breast (principal); J18.9 Pneumonia, unspecified organism; Z51.5 Encounter for palliative care; R09.02 Hypoxemia; Z66 Do not resuscitate; M79.7 Fibromyalgia; R59.1 Generalized enlarged lymph nodes; I10 Essential (primary) hypertension; E03.9 Hypothyroidism, unspecified; S21.001A Unspecified open wound of right breast, initial encounter; G43.909 Migraine, unspecified, not intractable, without status migrainosus; Z90.710 Acquired absence of both cervix and uterus; Z90.11 Acquired absence of right breast and nipple; Z88.5 Allergy status to narcotic agent
CPT/HCPCS: 71275; 82040; 82247; 82310; 82374; 82435; 82565; 82947; 83880; 84075; 84132; 84155; 84295; 84450; 84460; 84484; 84520; 85025; 93005; 94640; 96374; 96375; 99284; J0696; J1170; J2060; J2930; J7030; J7050; Q9967

== ENCOUNTER → 2018-12-19 | Outpatient (CLI) | payer MEDICARE, MEDICAID ==
[2017-06-05 15:07] VITALS: BMI 19.2
[~2018-12-19] MED LIST changes: +CEFU500T10 PO; +HYDR8TAB PO; +HYDR8TAB16 PO; +PRED20TA6 PO
== END ==
LOC: AMB 02:53
PROVIDERS: ATTEND Nurse Practitioner
DX: R09.02 Hypoxemia (principal); C34.90 Malignant neoplasm of unspecified part of unspecified bronchus or lung
CPT/HCPCS: A0425; A0429